=== PATIENT | female | born 1995 | race Caucasian/White ===

== ENCOUNTER 2017-10-30 18:35 | Outpatient (CLI) | payer BC | END 2017-10-30 21:15 | disposition home or self-care (01) | LOC: OBT 18:35 → L-D 18:36 → OBT 21:15 | DX: O24.410 Gestational diabetes mellitus in pregnancy, diet controlled (principal); Z3A.37 37 weeks gestation of pregnancy | CPT/HCPCS: 76818; 82962 ==

== ENCOUNTER 2017-11-03 18:57 | Outpatient (CLI) | payer BC | END 2017-11-03 21:33 | disposition home or self-care (01) | LOC: OBT 18:57 → L-D 18:58 → OBT 21:33 | DX: O24.410 Gestational diabetes mellitus in pregnancy, diet controlled (principal); Z3A.38 38 weeks gestation of pregnancy | CPT/HCPCS: 76818; 82962 ==

== ENCOUNTER 2017-11-06 19:45 | Outpatient (CLI) | payer BC | END 2017-11-06 22:20 | disposition home or self-care (01) | LOC: OBT 19:45 → L-D 19:46 → OBT 22:20 | DX: O24.410 Gestational diabetes mellitus in pregnancy, diet controlled (principal); Z3A.33 33 weeks gestation of pregnancy | CPT/HCPCS: 76818; 82962 ==

== ENCOUNTER 2017-11-10 10:34 | Outpatient (CLI) | payer BC | END 2017-11-10 12:00 | disposition home or self-care (01) | LOC: OBT 10:34 → L-D 10:35 → OBT 12:00 | DX: O24.410 Gestational diabetes mellitus in pregnancy, diet controlled (principal); Z3A.39 39 weeks gestation of pregnancy | CPT/HCPCS: 76818; 82962 ==